=== PATIENT | female | born 1935 | race Caucasian/White ===

== ENCOUNTER → 2023-03-20 10:26 | Outpatient (CLI) | payer MEDICARE, SELFPAY ==
[2023-03-20 10:52] LABS: Basophils % 0.6 % (0.1-2.0); Eosinophils # 0.1 K/mm3 (0.0-0.4); Eosinophils % 1.8 % (0.1-12.0); Hematocrit 42.4 % (37.0-47.0); Hemoglobin 14.3 g/dL (12.2-16.2); Lymphocytes # 1.7 K/mm3 (0.7-4.5); Lymphocytes % 38.6 % (10-50); Mean Corpuscular HGB Conc 33.6 g/dL (31.8-35.4); Mean Corpuscular Hemoglobin 32.2 pg (27.0-31.2); Mean Corpuscular Volume 95.8 fl (81-99); Mean Platelet Volume 8.8 fl (7.4-10.4); Monocytes # 0.2 K/mm3 (0.1-1.0); Monocytes % 4.1 % (1.7-9.3); Neutrophils # 2.4 K/mm3 (1.8-7.8); Neutrophils % 54.9 % (37.0-80.0); Platelet Count 134 K/mm3 (142-424); Red Blood Count 4.43 M/mm3 (4.20-5.40); Red Cell Distribution Width 14.9 % (11.5-17.5); White Blood Count 4.3 K/mm3 (4.8-10.8)
[2023-03-20 11:25] LABS: Alanine Aminotransferase 34 U/L (12-78); Albumin Level 4.1 g/dl (3.5-5.0); Alkaline Phosphatase 116 U/L (38-126); Aspartate Amino Transferase 37 U/L (14-36); Bilirubin,Direct 0.3 mg/dl (0.0-0.4); Bilirubin,Indirect 0.6 mg/dL (0.0-0.9); Bilirubin,Total 0.9 mg/dl (0.2-1.3); Bilirubin,Unconjugated 0.6 mg/dL (0.0-1.1); Blood Urea Nitrogen 15 mg/dl (7-17); Calcium 9.4 mg/dl (8.4-10.2); Carbon Dioxide 30 mmol/L (22.0-30.0); Chloride 101 mmol/L (98-107); Chol/HDL Ratio 5.1 (1-3.5); Cholesterol 234 mg/dl (140-200); Estimated Glomerular Filt Rate 68 ml/min (>60); GFR (African American) 82 ML/MIN (>60); Glucose 95 mg/dl (74-100); HDL Cholesterol 46 mg/dl (40-60); Sodium 136 mmol/L (136-145); Total Protein,Serum 6.7 g/dl (6.3-8.2); Triglycerides 129 mg/dl (30-150); VLDL Cholesterol 26 mg/dL (0-40)
[2023-03-20 11:36] LABS: Direct LDL Cholesterol 138.34 mg/dL (100-129)
[2023-03-20 11:41] LABS: Free T4 (Free Thyroxine) 3.68 ng/dl (0.78-2.19)
[2023-03-20 11:55] LABS: Thyroid Stimulating Hormone 0.15 uIU/mL (0.465-4.68)
== END ==
PROVIDERS: PCP Nurse Practitioner Family; Visit Provider Nurse Practitioner Family
DX: E03.9 Hypothyroidism, unspecified (principal); E78.5 Hyperlipidemia, unspecified; I10 Essential (primary) hypertension; I25.10 Atherosclerotic heart disease of native coronary artery without angina pectoris; I48.91 Unspecified atrial fibrillation; I73.9 Peripheral vascular disease, unspecified; R06.00 Dyspnea, unspecified; R07.9 Chest pain, unspecified; Z95.0 Presence of cardiac pacemaker
CPT/HCPCS: 36415; 80048; 80061; 80076; 83735; 84439; 84443; 85025

== ENCOUNTER → 2023-04-11 07:37 | Outpatient (CLI) | payer MEDICARE, SELFPAY ==
--- NOTE | 2023-04-11 07:38 | NM_ITS ---
APPROVED REPORT Exam: Nuclear Stress Test Indication: angina..fatigue..high bp Patient Location: Outpatient Stress Tech: Elizabeth Reinoso [place] Tech:Gaye StevensADRIANA azul RT (R)(N)(M) Ht: 5 ft 0 in Wt: 119 lbs Bra Size: b HR: 61 bpm BP: 179/57 mmHg BSA: 1.50 m2 Rhythm: NSR TID: 0.93 History: angina..fatigue..high bp Procedure: Patient received 0.4 mg of intravenous Lexiscan, resting heart rate 61 bpm, resting blood pressure 179/57 mmHg, with Lexiscan maximum heart rate achieved was 70 bpm which is 85 % of the maximum predicted heart rate and blood pressure was 135/60 mmHg. With Lexiscan, patient denied any complaint of chest pain. Cardiac Stress and Resting SPECT Images: Cardiac Stress and Resting SPECT images were obtained using technetium 99m Myoview 31.0 mCi stress and 10.85 mCi at rest. Resting and stress imaging in supine and prone positions demonstrate no evidence of fixed or reversible perfusion defects. Gated imaging demonstrates normal global and regional LV systolic function. LVEF is calculated at 69%. Conclusion: No evidence of fixed or reversible perfusion defects. Gated imaging demonstrates normal global and regional LV systolic function. LVEF is calculated at 69%. Electronically signed by : Ashley Bravo MD 04/11/2023 14:21:52
--- NOTE | 2023-04-11 09:19 | CA_ITS ---
APPROVED REPORT EXAM: Comprehensive 2D, Doppler, and color-flow Echocardiogram Butt Maker: Susan Wood CRT Ht: 5 ft 0 in Wt: 125lbs BSA: 1.53 BP: 186/71 mmHg Indications: Chest Pain, Atrial Fibrillation, CAD, Hypertension/HDD 2D Dimensions Left Atrium 4.43 cm LVEF (Trivedi's) 62.00 % LVOT 1.65 cm (M/F) 1.5-2.5 LV Volume 70.00 mL LV Volume Index 45.447524 mL/m2 F: 29 - 61 LA Volume 45.90 mL LA Volume Index 30.427218 mL/m2 (M/F) 16-34 EF AP4 61.10 % EF AP2 54.6 % EF BP 62.0 % GL Strain -21.3 % M-Mode Dimensions RVDd 2.95 cm (0.9-2.6) LVDd 3.64 cm (3.5-5.7) Ao Diam 3.03 cm (2.0-3.7) LVDs 2.23 cm (3.5-5.7) IVSd 1.70 cm (0.6-1.1) PWd 1.16 cm (0.6-1.1) EF (Teich) 69.90% FS 38.70% EDV (Teich) 55.90 mL TAPSE 1.22 (<1.7) ESV (Teich) 16.80 mL LV Diastology E Decel Time 219 (160-240 msec) E/A Ratio 0.90 MED E' 6.4 (>= 7 cm/sec) MED A' 8.40 cm/s E'/MED E' Ratio 12.67 (<= 14) LAT E' 9.3 (>= 10 cm/sec) LAT A' 6.60 cm/s E/LAT E' Ratio 8.72 (<= 14) Aortic Valve AoV Peak Dre. 150.0 (50-130 cm/s) AO Peak GR. 9.00 mmHg Mitral Valve MV E Max Dre. 81.0 (40-130 cm/s) MV A Velocity 90.0 (40-130 cm/s) E/A Ratio 0.90 MV Decel. Time 219 (160-240 ms) Tricuspid Valve TR P. Velocity 273.00 cm/s RAP Estimate 10.00 mmHg RVSP 39.80 mmHg Left Ventricle The left ventricle is normal size. The left ventricular systolic function is normal. The left ventricular ejection fraction is within the normal range. There is increased LV wall thickness. There is normal LV segmental wall motion. The left ventricular diastolic function is normal. LVEF is 55%. Right Ventricle The right ventricle is mildly dilated. The right ventricular systolic function is normal. There is a device lead in the right ventricle. Atria The left atrium is mildly dilated. The right atrium is mildly dilated. There is no Doppler evidence of interatrial shunt. Aortic Valve The aortic valve is mildly thickened. There is aortic sclerosis, but no evidence of aortic stenosis. Trace aortic regurgitation. Mitral Valve The mitral valve leaflets are mildly thickened. No evidence of mitral valve stenosis. Mild mitral regurgitation. Tricuspid Valve The tricuspid valve leaflets are thin and pliable. Mild to moderate tricuspid regurgitation. RVSP is 30???35 mmHg. Pulmonic Valve The pulmonary valve is normal in structure. Trace pulmonic regurgitation. Great Vessels The aortic root is normal in size. The ascending aorta is normal in size. IVC is normal in size and collapses >50% with inspiration. Pericardium There is no pericardial effusion. Conclusion Normal biventricular systolic function. Mild RV dilation. Mild MR. Mild to moderate TR. RVSP 30-35 mmHg. Electronically signed by : Ashley Bravo MD 04/11/2023 13:42:20
--- NOTE | 2023-04-11 10:12 | CA_ITS ---
APPROVED REPORT Exam: Pharmacologic Technologist: Elizabeth Reinoso Ht: 5 ft 0 in Wt: 125 lbs BSA: 1.53 m2 HR: 61 bpm BP: 179/57 mmHg Rhythm: NSR Indications: Angina Medical History Medications: Levothyroxine,,,,, Aspirin,,,,, Metoprolol,,,,, Pantoprazole,,,,, Apixaban,,,,, Stress Test Details Test: LEXISCAN HR Resting HR: 60 bpm Max Heart Rate (APMHR): 133 bpm Max HR Achieved: 80 bpm Target HR (85% APMHR): 113 bpm % of APMHR: 60 Recovery HR: 68 bpm BP Resting BP: 179.0/57.0 mmHg Max BP: 168.0/58.0 mmHg Recovery BP: 162.0/60.0 mmHg ECG Resting ECG: Sinus rhythm, Right bundle branch block Stress ECG: No significant ST changes Arrhythmia: None Clinical Exercise duration: 04:10 min Highest Stage Achieved: Stress ECG Conclusion Symptoms: Dyspnea, headache Arrhythmias/Ectopy: None ST-T Changes: No significant ST changes Conclusion: Nondiagnostic ECG portion of the stress test due to baseline abnormalities. Myoview images reported separately. Test Summary REST . . . . . . . Resting REST 01:56 . . 60 . . . . Stage 1 . . . . . . . Myoview Injected Stage 1 01:00 . . 68 . . . . Stage 2 01:00 . . 72 . . . . Stage 3 01:00 . . 65 . 135/ 60 . . Stage 4 01:00 . . 69 . 157/ 63 . . Stage 4 01:10 . . 69 . 157/ 63 . Stop exercise at 04:10 RECOVERY 01:00 . . 71 . 150/ 59 . . RECOVERY 02:00 . . 72 . 151/ 47 . . RECOVERY 03:00 . . 71 . 168/ 58 . . RECOVERY 04:00 . . 70 . 168/ 58 . . RECOVERY 05:00 . . 67 . 162/ 60 . . RECOVERY 06:00 . . 67 . 162/ 60 . . RECOVERY 07:00 . . 66 . 166/ 55 . . RECOVERY 07:49 . . 66 . 166/ 55 . . Electronically signed by : Ashley Bravo MD 04/25/2023 12:36:15
== END ==
PROVIDERS: PCP Family Medicine; Visit Provider Nurse Practitioner Family
DX: E03.9 Hypothyroidism, unspecified (principal); E78.5 Hyperlipidemia, unspecified; I10 Essential (primary) hypertension; I25.10 Atherosclerotic heart disease of native coronary artery without angina pectoris; I48.91 Unspecified atrial fibrillation; I73.9 Peripheral vascular disease, unspecified; R06.00 Dyspnea, unspecified; R07.9 Chest pain, unspecified; Z95.0 Presence of cardiac pacemaker
CPT/HCPCS: 78452; 93017; 93018; 93306; A9502; J2785

== ENCOUNTER 2023-05-31 10:31 | Outpatient (CLI) | payer MEDICARE, SELFPAY ==
[2023-05-31 12:49] LABS: Thyroid Stimulating Hormone 0.07 uIU/mL (0.465-4.68)
[2023-05-31 13:54] LABS: Free T4 (Free Thyroxine) 4.13 ng/dl (0.78-2.19)
== END 2023-05-31 23:59 ==
LOC: LAB 10:32
PROVIDERS: PCP Internal Medicine; Visit Provider Nurse Practitioner Family
DX: E03.9 Hypothyroidism, unspecified (principal); R53.83 Other fatigue
CPT/HCPCS: 36415; 84439; 84443